=== PATIENT | female | born 1945 | race Caucasian/White ===

== ENCOUNTER → 2017-05-21 | Outpatient (CLI) | payer MEDICARE ==
[~2017-05-21] MED LIST: GASTROGRAFIN SOLUTION 30ML (Q9963) As Ordered ONE; ISOVUE-370 76% 100ML VIAL (Q9967) As Ordered ONE
--- NOTE | 2017-05-21 17:04 | REP ---
CT chest with contrast: History: Restaging lymphoma. Diarrhea and cramping. Comparison chest CT study 02/10/2015. CT contrast dose: 100 mL of Isovue [address] findings: There is no evidence of pleural or pericardial effusion. A hiatal hernia is again noted. No hilar or mediastinal lymphadenopathy is appreciated. Some coronary artery vascular calcification is seen. No periaortic disease is seen. There is a paraesophageal lymph node just posterior to the left atrium which measures 1.5 cm in cranial caudal span but only 0.6 x 0.7 cm in transverse dimension. No retrocrural adenopathy is seen. No axillary or supraclavicular jd disease is seen. A right-sided [id number]-[id number] catheter is noted in the superior vena cava. No bony destructive lesion is seen. There are cysts in the left liver as before. Lung window settings show no pulmonary nodule or mass lesion. No infiltrate or pleural effusion is seen. Impression: Hiatal hernia again noted. The single paraesophageal lymph node is seen borderline in size. No other evidence of adenopathy in the chest. Signed by Italo Grace MD 05/22/2017 07:52 A
--- NOTE | 2017-05-21 17:04 | REP ---
CT abdomen and pelvis without and with IV contrast and with bowel contrast: Comparison is 01/22/2015. After IV contrast. Biphasic imaging is performed initially during the arterial phase of enhancement followed by imaging during the delayed equilibrium phase of enhancement. There is no evidence of hepatosplenomegaly. This is unchanged. There is an hepatic cyst in the medial segment of the left lobe measuring up to 2.6 cm. There is an hepatic cyst in the right lobe of the liver measuring up to 2.4 cm. These are not significantly changed. The hepatic parenchyma is otherwise homogeneous and unremarkable. The gallbladder and pancreas are unremarkable. Spleen and liver otherwise homogeneous, normal size and unremarkable. The adrenals and kidneys are unremarkable and unchanged. There is confluent periaortic/retroperitoneal adenopathy, however, this has decreased in size from the comparison study. Pelvis: There is bilateral iliac and femoral adenopathy. This has also decreased in size. There are bilateral inguinal nodes. A few are borderline enlarged. The remainder are normal size. This is unchanged. The uterus and adnexa are unremarkable. There is no ascites. The pelvic bowel loops are unremarkable. Occasional normal size mesenteric nodes are noted. No mesenteric lymph node enlargement. The number of mesenteric nodes has decreased. There is a fixed hiatal hernia. This is unchanged. Impression: The periaortic retroperitoneal adenopathy has decreased in size. The bilateral iliac and femoral adenopathy has decreased in size. There are multiple inguinal nodes bilaterally, a few of which are borderline enlarged. This is unchanged. There are normal size mesenteric nodes. These have decreased in number from the prior study. Signed by Carlos Alberto Contreras MD 05/21/2017 04:56 P
== END ==
LOC: M RAD 14:25
PROVIDERS: ATTEND Internal Medicine Medical Oncology
DX: C82.08 Follicular lymphoma grade I, lymph nodes of multiple sites (principal)
CPT/HCPCS: 71260; 74178; Q9963; Q9967

== ENCOUNTER → 2017-08-28 | Outpatient (REF) | payer MEDICARE ==
[2017-08-28 18:42] LABS: PERCENT SATURATION 17.9 % (13.2-45.0)
== END ==
LOC: M LAB REF 16:34
PROVIDERS: ATTEND Internal Medicine Medical Oncology
DX: C85.90 Non-Hodgkin lymphoma, unspecified, unspecified site (principal)

== ENCOUNTER → 2017-11-14 | Outpatient (REF) | payer MEDICARE ==
[2017-11-14 13:24] LABS: INR 0.85; PROTHROMBIN TIME 11.7 SECONDS (12.4-14.5)
[2017-11-14 13:25] LABS: PARTIAL THROMBOPLASTIN TIME 27.3 SECONDS (26.8-37.9)
== END ==
LOC: M LAB REF 13:06
DX: C82.08 Follicular lymphoma grade I, lymph nodes of multiple sites (principal)
CPT/HCPCS: 85610

== ENCOUNTER → 2017-11-19 | Outpatient (REF) | payer MEDICARE | LOC: M LAB REF 13:04 | DX: C82.08 Follicular lymphoma grade I, lymph nodes of multiple sites (principal) | CPT/HCPCS: 88300 ==

== ENCOUNTER → 2017-11-20 | Outpatient (CLI) | payer MEDICARE | LOC: M PLARAD 13:29 | DX: C82.08 Follicular lymphoma grade I, lymph nodes of multiple sites (principal) | CPT/HCPCS: 78815 ==

== ENCOUNTER → 2017-11-27 | Outpatient (CLI) | payer MEDICARE ==
[~2017-11-27] MED LIST changes: +ACETAMINOPHEN 325 MG TAB As Ordered; -GASTROGRAFIN SOLUTION 30ML (Q9963) As Ordered ONE; -ISOVUE-370 76% 100ML VIAL (Q9967) As Ordered ONE; +LIDOCAINE 1% MDV 20ML VIAL As Ordered
== END ==
LOC: M RADPRO 08:28
DX: R93.7 Abnormal findings on diagnostic imaging of other parts of musculoskeletal system (principal); C85.10 Unspecified B-cell lymphoma, unspecified site; Z88.1 Allergy status to other antibiotic agents; Z79.899 Other long term (current) drug therapy
CPT/HCPCS: 62269

== ENCOUNTER 2017-12-04 15:09 | Outpatient (RCR) | payer MEDICARE | END 2017-12-05 | LOC: M ONCR 15:09 | DX: C82.09 Follicular lymphoma grade I, extranodal and solid organ sites (principal) | CPT/HCPCS: 77307 ==

== ENCOUNTER → 2017-12-04 | Outpatient (CLI) | payer MEDICARE | LOC: M RAD 14:08 | DX: C82.09 Follicular lymphoma grade I, extranodal and solid organ sites (principal) ==

== ENCOUNTER → 2017-12-04 | Outpatient (CLI) | payer MEDICARE | LOC: M ONCR 09:18 | DX: C82.00 Follicular lymphoma grade I, unspecified site (principal) ==

== ENCOUNTER 2017-12-06 11:07 | Outpatient (RCR) | payer MEDICARE | END 2018-01-02 | LOC: M ONCR 11:07 | DX: C82.09 Follicular lymphoma grade I, extranodal and solid organ sites (principal) | CPT/HCPCS: 77336 ==

== ENCOUNTER → 2018-01-04 | Outpatient (REF) | payer MEDICARE ==
[2018-01-04 13:35] LABS: APPEARANCE, URINE CLEAR (CLEAR); BACTERIA, URINE AUTO NEGATIVE (NEGATIVE); BILIRUBIN, URINE AUTO NEGATIVE (NEGATIVE); BLOOD, URINE BLOOD NEGATIVE (NEGATIVE); COLOR, URINE YELLOW (YELLOW); GLUCOSE, URINE (UA) AUTO NEGATIVE (NEGATIVE); KETONE, URINE AUTO NEGATIVE (NEGATIVE); LEUKOCYTE ESTERASE, URINE AUTO NEGATIVE (NEGATIVE); NITRITE, URINE AUTO NEGATIVE (NEGATIVE); PROTEIN, URINE AUTO NEGATIVE (NEGATIVE); RBC, URINE AUTO 4 /HPF (0-3); SPECIFIC GRAVITY URINE AUTO 1.015 (1.002-1.035); SQUAMOUS EPITHELIAL CELL UR AU 1 /HPF (0-6); UROBILINOGEN, URINE AUTO 0.2 mg/dL (0.0-2.0); WBC, URINE AUTO 1 /HPF (0-3)
== END ==
LOC: M LAB REF 13:10
DX: C85.90 Non-Hodgkin lymphoma, unspecified, unspecified site (principal)
CPT/HCPCS: 81001

== ENCOUNTER → 2018-01-09 | Outpatient (CLI) | payer MEDICARE | LOC: M ONCR 13:09 | DX: C82.09 Follicular lymphoma grade I, extranodal and solid organ sites (principal) | CPT/HCPCS: G0463 ==

== ENCOUNTER → 2018-02-19 | Outpatient (CLI) | payer MEDICARE | LOC: M PLARAD 13:32 | DX: C82.08 Follicular lymphoma grade I, lymph nodes of multiple sites (principal) | CPT/HCPCS: 78815 ==

== ENCOUNTER → 2018-08-13 | Outpatient (CLI) | payer MEDICARE | LOC: M PLARAD 09:16 | DX: C82.08 Follicular lymphoma grade I, lymph nodes of multiple sites (principal) | CPT/HCPCS: 78815 ==

== ENCOUNTER → 2019-07-16 | Outpatient (CLI) | payer MEDICARE ==
[~2019-07-16] MED LIST changes: -ACETAMINOPHEN 325 MG TAB As Ordered; +CARV25TA PO; +FLUTISP NARES; +GASTROGRAFIN SOLUTION 30ML (Q9963) As Ordered ONE; +HYDR25TAB PO; +HYOS0.1258 PO; +ISOVUE-370 76% 100ML VIAL (Q9967) As Ordered ONE; +LIDO2.5C15 TOP; -LIDOCAINE 1% MDV 20ML VIAL As Ordered; +NEXI40CA PO; +ONDA8TAB7 PO; +POTA20TA6; +POTA20TA6 PO; +SPIR-10 PO
--- NOTE | 2019-07-16 13:25 | REP ---
CT of the soft tissue neck without contrast Indication: Restaging follicular lymphoma. Comparison: PET/CT of 08/13/2018. Technique: Axial CT of the soft tissue neck was performed. No intravenous contrast was administered. Coronal and sagittal soft tissue reformatted images were provided. Findings: Within the limitation of a noncontrast enhanced CT examination, there are no enlarged cervical lymph nodes. There is streak artifact from dental amalgam with obscures the anterior face. However, the oropharynx is unremarkable. The right vallecular space is effaced (axial image 38). The upper, is unremarkable. The upper airway is patent. The collapsed upper esophagus is unremarkable. The lung apices are clear. There is a partially imaged right-sided anterior chest wall catheter. There is a hypoattenuating nodule within the left thyroid lobe which measures approximately 2.2 x 1.6 cm on coronal image 33. The submandibular glands and parotid glands are unremarkable. The orbital contents are intact. There are intracranial vascular calcifications. The imaged portion of the brain parenchyma is unremarkable. The visualized paranasal sinuses and mastoid air cells are clear. There is cervical spondylosis. Impression: Within the limitation of a noncontrast enhanced CT examination, there is no cervical lymphadenopathy. Effacement of the right vallecular space. Epiglottis is normal. Hypoattenuating left thyroid lobe nodule. Cervical spondylosis. Electronically Signed by Mariely Cano MD 07/16/2019 01:16 P
--- NOTE | 2019-07-16 13:34 | REP ---
CT of the chest without contrast Indication: Restaging follicular lymphoma. Comparison: PET/CT of 08/13/2018. Technique: Axial CT of the chest was performed. No intravenous contrast was administered. Coronal and sagittal soft tissue reformatted images, axial lung. Reformatted images and coronal MIP images were provided. Findings: Within the limitation of a noncontrast enhanced CT examination, there is no axillary mediastinal lymphadenopathy. The tip of the right-sided anterior chest wall port catheter terminates within the mid superior vena cava. There is aortic arch and coronary artery calcification. Heart size is normal. There is no pericardial the upper airway is patent. The lungs are clear. There is no pleural effusion. There is oral contrast within the mid esophagus and sliding hiatal hernia. Within the upper abdomen, there are no to hypoattenuating hepatic lesion is likely representing cysts. There is no adrenal nodule. No suspicious focal osseous lesion is identified. Impression: Within the limitation of a noncontrast enhanced chest CT examination, there is no evidence of disease. Electronically Signed by Mariely Cano MD 07/16/2019 01:26 P
--- NOTE | 2019-07-16 14:37 | REP ---
CT of the abdomen and pelvis without contrast Indication: Restaging follicular lymphoma. Comparison: PET/CT of 08/13/2018. CT of the abdomen pelvis of 05/21/2017. Technique: CT of the abdomen and pelvis was performed from the lung bases to the proximal femurs. No intravenous contrast was administered. Oral contrast media was administered. Coronal and sagittal soft tissue reformatted images were provided. Findings: Within the limitation of a noncontrast enhanced CT examination, there is ill-defined soft tissue within the aortocaval space just below the level of the left renal vein (axial image 53) as evidenced by circumferential calcification of the abdominal aorta at this level. However, this is not significantly changed from the 2018 PET/CT and significantly decreased when compared to noncontrast images of the 2017 examination as the aortocaval interval measures 5.4 x 1.7 cm, previously 6.8 x 3.6 cm on the 05/21/2017 examination. There are scattered small mesenteric lymph nodes, not significantly changed. There are newly enlarged lymph nodes. The liver is normal in size and contour. There are two hepatic cysts, measuring 2 and 3 cm, similar to prior. The gallbladder is underdistended. The spleen is normal in size. There is no adrenal nodule. The unenhanced pancreas and left kidney are within normal limits. There is a tiny nonobstructing 1 mm right renal lower pole calculus. There are atherosclerotic calcifications of the abdominal aorta and its branches. There is hiatal hernia. The stomach is moderately distended with contrast. Small and large bowel loops are normal in caliber. There are scattered colonic diverticula. There is no intraperitoneal free fluid or free air. The uterus is present. The ovaries are poorly visualized. The urinary bladder is underdistended. Superior endplate compression deformity of the L3 vertebral body with and less than 50% loss of height is new since the 2017 examination but sclerotic similar to the 08/13/2018 study, likely chronic. Grade 1 anterolisthesis of L4-L5 is unchanged. Impression: Within the limitation of a noncontrast enhanced CT examination, similar infrarenal soft tissue within the aortocaval space when compared to the head CT of 08/13/2018, significantly decreased from the CT abdomen and pelvis of 05/21/2017. No new evidence of disease. Chronic compression deformity of the L3 vertebral body with less than 50% loss of height, new since the 2017 examination. Electronically Signed by Mariely Cano MD 07/16/2019 02:28 P
== END ==
LOC: M RAD 11:31
PROVIDERS: ATTEND Nurse Practitioner Family
DX: C82.90 Follicular lymphoma, unspecified, unspecified site (principal)
CPT/HCPCS: 70490; 71250; 74176; Q9963

== ENCOUNTER → 2020-08-23 | Outpatient (CLI) | payer MEDICARE ==
[~2020-08-23] MED LIST changes: -ISOVUE-370 76% 100ML VIAL (Q9967) As Ordered ONE; +ISOVUE-370 76% 100ML VIAL As Ordered ONE; +ONDA8TAB10 PO; -ONDA8TAB7 PO
--- NOTE | 2020-08-23 13:45 | REP ---
INDICATION: HX OF NONHODGKINS LYMPHOMA COMPARISON: 07/16/2019, 05/21/2017 TECHNIQUE: Axial contrast enhanced images from the thoracic inlet to the upper abdomen using pulmonary embolus technique with multiplanar re-formations. 100 ml Isovue 370 intravenous contrast material administered without complication. Examination was followed by CT of the abdomen and pelvis. This CT examination was performed using the following dose reduction techniques: Automated exposure control, adjustment of mA and/or kv according to the patient's size, and use of iterative reconstruction technique. FINDINGS: The bilateral lung taveras are well aerated and clear. No consolidation, suspicious nodule or mass lesion is appreciated. No pleural effusion. No pneumothorax. Tracheobronchial tree is patent. No axillary, hilar, or mediastinal adenopathy. Thoracic aorta, pulmonary vasculature, and heart/pericardium are within normal limits. Moderate hiatal hernia is again identified along with stable single paraesophageal lymph node measuring 7 mm unchanged compared to 2017. Musculoskeletal structures are intact. [id number] identified with tip in the SVC. IMPRESSION: No mediastinal or pleuroparenchymal process appreciated. No evidence for adenopathy. <Electronically signed by Robbie Arreguin > 08/23/20 [id number]
--- NOTE | 2020-08-23 13:52 | REP ---
INDICATION: HX OF NONHODGKINS LYMPHOMA. COMPARISON: 05/21/2017 TECHNIQUE: Axial contrast-enhanced images from the lung bases to the pubic symphysis using 100 cc Isovue 370 intravenous contrast material. Coronal and sagittal reformations obtained along with delayed images of the abdomen. This CT examination was performed using the following dose reduction techniques: Automated exposure control, adjustment of mA and/or kv according to the patient's size, and the use of iterative reconstruction technique. FINDINGS: Liver, spleen, pancreas, gallbladder, bilateral adrenal glands and kidneys are normal/stable. Benign hepatic cysts measuring approximately 3.3 cm and 2.5 cm diameter are again noted. Moderate hiatal hernia is again noted at the gastroesophageal junction. No evidence for bowel obstruction or acute inflammatory process. Pelvis demonstrates normal bladder and age-appropriate uterus/adnexa. Sigmoid diverticula noted without acute diverticulitis. No ascites. No free air. Minimal periaortic soft tissue identified adjacent to the pararenal/infrarenal abdominal aorta which may represent chronic changes and the previously noted retroperitoneal adenopathy appears to have resolved. Atherosclerotic changes to the aorta and vasculature noted without aneurysm or dissection. Musculoskeletal structures demonstrate stable degenerative changes without acute osseous abnormality. IMPRESSION: 1. Small amount of residual periaortic soft tissue likely chronic. No significant residual adenopathy is appreciated based on comparison with prior examinations. 2. Stable benign hepatic cysts. 3. Sigmoid diverticula without acute diverticulitis. 4. Stable hiatal hernia. <Electronically signed by Robbie Arreguin > 08/23/20 [id number]
== END ==
LOC: M RAD 10:45
PROVIDERS: ATTEND Specialist
DX: Z85.72 Personal history of non-Hodgkin lymphomas (principal)
CPT/HCPCS: 71260; 74177; Q9963; Q9967

== ENCOUNTER → 2022-09-26 | Outpatient (CLI) | payer MEDICARE ==
[~2022-09-26] MED LIST changes: +AMOX500T PO; -GASTROGRAFIN SOLUTION 30ML (Q9963) As Ordered ONE; +GASTROGRAFIN SOLUTION 30ML As Ordered ONE; +HYDR-3490 PO; -HYDR25TAB PO; +LIDO1CRE42 TOP; -LIDO2.5C15 TOP; +ONDA-84 PO; -ONDA8TAB10 PO; +POTA-151; +POTA-151 PO; -POTA20TA6; -POTA20TA6 PO
== END ==
LOC: M RAD 11:38
PROVIDERS: ATTEND Internal Medicine Medical Oncology
DX: C82.90 Follicular lymphoma, unspecified, unspecified site (principal); K76.89 Other specified diseases of liver; K44.9 Diaphragmatic hernia without obstruction or gangrene; I70.0 Atherosclerosis of aorta; M51.36 Other intervertebral disc degeneration, lumbar region; I70.1 Atherosclerosis of renal artery; D48.3 Neoplasm of uncertain behavior of retroperitoneum; N28.89 Other specified disorders of kidney and ureter; E04.1 Nontoxic single thyroid nodule; M50.30 Other cervical disc degeneration, unspecified cervical region
CPT/HCPCS: 70491; 71260; 74177; Q9963; Q9967

== ENCOUNTER → 2022-10-09 | Outpatient (REF) | payer MEDICARE ==
[~2022-10-09] MED LIST changes: -GASTROGRAFIN SOLUTION 30ML As Ordered ONE; -ISOVUE-370 76% 100ML VIAL As Ordered ONE
[2022-10-09 15:48] LABS: APPEARANCE, URINE MANUAL CLEAR (CLEAR); BILIRUBIN, URINE MANUAL NEGATIVE (NEGATIVE); BLOOD URINE MANUAL NEGATIVE (NEGATIVE); COLOR, URINE MANUAL YELLOW (YELLOW); GLUCOSE, URINE (UA) MANUAL NEGATIVE (NEGATIVE); KETONE, URINE MANUAL NEGATIVE (NEGATIVE); LEUKOCYTE ESTERASE, URINE MAN POSITIVE (NEGATIVE); NITRITE, URINE MANUAL NEGATIVE (NEGATIVE); PH,URINE MAN 5.5 UNITS (5.0 - 7.0); PROTEIN, URINE MANUAL NEGATIVE (NEGATIVE); UROBILINOGEN, URINE MANUAL NORMAL (NORMAL)
[2022-10-09 19:17] LABS: BACTERIA, URINE LARGE AMOUNT; RBC, URINE 0-1 /hpf (0-3); SQUAMOUS EPITHELIAL CELL URINE LARGE AMOUNT /hpf (SMALL AMT); YEAST, URINE MOD AMOUNT
[2022-10-09 19:18] LABS: HYALINE CAST, URINE 0-1 /lpf (0-1); MUCUS, URINE SMALL AMOUNT (NEGATIVE)
== END ==
LOC: M SMT 12:57
PROVIDERS: ATTEND Urology
DX: N13.30 Unspecified hydronephrosis (principal)

== ENCOUNTER → 2022-10-31 | Outpatient (CLI) | payer MEDICARE | LOC: M PLARAD 08:46 | PROVIDERS: ATTEND Internal Medicine Medical Oncology | DX: C82.08 Follicular lymphoma grade I, lymph nodes of multiple sites (principal) | CPT/HCPCS: 78815; A9552 ==

== ENCOUNTER → 2022-12-03 | Outpatient (CLI) | payer MEDICARE ==
[~2022-12-03] MED LIST changes: +APAP325T4 PO; +COQ150CH PO; +DICY10CA13 PO; +ESOM40CA35 PO; +PROB250C PO; +RA G580C PO; +VISION ESSENTIAL PO; +VITA500C19 PO; +VITMTA PO; +[UNRECOGNIZED DRUG - OTHER] PO; +[UNRECOGNIZED DRUG - OTHER] PO; +[UNRECOGNIZED DRUG - REMARK] PO
== END ==
LOC: M LABSMTC 10:02
PROVIDERS: ATTEND Anesthesiology
DX: Z01.812 Encounter for preprocedural laboratory examination (principal); Z11.52 Encounter for screening for COVID-19

== ENCOUNTER 2022-12-07 07:33 | Day surgery (SDC) | payer MEDICARE ==
[~2022-12-07] VITALS: Ht 152.4 cm; Wt 59.1 kg
[~2022-12-07 07:33] MED LIST changes: +ceFAZolin SOD 2 GM in IV 1 EA IV ONE
[2022-12-07] MEDS ORDERED: LR 1,000 ML IV SCH (08:00)
[2022-12-07] MEDS ORDERED: ONDANSETRON 4MG 2ML VIAL As Ordered ONE (08:15)
[2022-12-07] MEDS ORDERED: propofoL 200 MG/20 ML VIAL As Ordered ONE ×2 (08:15→09:06)
[2022-12-07] MEDS ORDERED: ACETAMINOPHEN 1000MG 100ML IV BAG As Ordered ONE (08:15)
[2022-12-07] MEDS ORDERED: fentaNYL 100 MCG/2 ML INJECTION As Ordered ONE (08:16)
[2022-12-07] MEDS ORDERED: LIDOCAINE 2% 100MG/5ML SDV (FOR ANES.) As Ordered ONE (08:20)
[2022-12-07] MEDS ORDERED: ISOVUE-300 61% 100ML VIAL As Ordered ONE (08:26)
[2022-12-07] MEDS ORDERED: OXYB5TAB10 PO (09:38)
[2022-12-07] MEDS ORDERED: MACR100C43 PO (09:38)
[2022-12-07] MEDS ORDERED: PYRI1TAB5 PO (09:38)
[2022-12-07 09:47] VITALS: BP 137/80
== END 2022-12-07 10:09 | disposition home or self-care (01) ==
LOC: M SDC 07:33
PROVIDERS: ATTEND Urology
DX: N13.8 Other obstructive and reflux uropathy (principal); I10 Essential (primary) hypertension; K21.9 Gastro-esophageal reflux disease without esophagitis; Z85.72 Personal history of non-Hodgkin lymphomas; Z92.21 Personal history of antineoplastic chemotherapy; Z92.3 Personal history of irradiation; Z79.899 Other long term (current) drug therapy; Z88.5 Allergy status to narcotic agent; Z88.1 Allergy status to other antibiotic agents; Z88.8 Allergy status to other drugs, medicaments and biological substances
CPT/HCPCS: 52204; 52332; 74420; 88305; C1769; C2617; J0690; J1100; J2405; J3010; Q9967

== ENCOUNTER → 2022-12-25 | Outpatient (CLI) | payer MEDICARE ==
[~2022-12-25] MED LIST changes: +MACR100C43 PO; +OXYB5TAB10 PO; +PYRI1TAB5 PO; -ceFAZolin SOD 2 GM in IV 1 EA IV ONE
== END ==
LOC: M LABSMTC 07:41
PROVIDERS: ATTEND Internal Medicine Medical Oncology
DX: Z11.52 Encounter for screening for COVID-19 (principal)

== ENCOUNTER → 2023-01-22 | Outpatient (CLI) | payer MEDICARE | LOC: M LABSMTC 09:05 | PROVIDERS: ATTEND Internal Medicine Medical Oncology | DX: Z01.812 Encounter for preprocedural laboratory examination (principal); Z20.822 Contact with and (suspected) exposure to COVID-19 ==

== ENCOUNTER → 2023-02-19 | Outpatient (CLI) | payer MEDICARE ==
[~2023-02-19] MED LIST changes: +FLUT50SP17 NARES; -FLUTISP NARES; +GASTROGRAFIN SOLUTION 30ML As Ordered ONE; +ISOVUE-370 76% 100ML VIAL As Ordered ONE
== END ==
LOC: M RAD 14:05
PROVIDERS: ATTEND Internal Medicine Medical Oncology
DX: C82.90 Follicular lymphoma, unspecified, unspecified site (principal); K76.89 Other specified diseases of liver; D73.4 Cyst of spleen; Z96.0 Presence of urogenital implants; K57.30 Diverticulosis of large intestine without perforation or abscess without bleeding
CPT/HCPCS: 71260; 74177; Q9963; Q9967

== ENCOUNTER → 2023-03-29 | Outpatient (CLI) | payer MEDICARE ==
[~2023-03-29] MED LIST changes: +AMLO1TAB24; -GASTROGRAFIN SOLUTION 30ML As Ordered ONE; -ISOVUE-370 76% 100ML VIAL As Ordered ONE; +VALS1TAB66
== END ==
LOC: M ONCR 13:28
PROVIDERS: ATTEND General Practice
DX: C82.00 Follicular lymphoma grade I, unspecified site (principal); R59.0 Localized enlarged lymph nodes; R53.83 Other fatigue; Z96.0 Presence of urogenital implants; Z92.3 Personal history of irradiation; Z92.21 Personal history of antineoplastic chemotherapy; Z71.2 Person consulting for explanation of examination or test findings; K44.9 Diaphragmatic hernia without obstruction or gangrene; K21.9 Gastro-esophageal reflux disease without esophagitis; I10 Essential (primary) hypertension; Z80.52 Family history of malignant neoplasm of bladder; Z88.1 Allergy status to other antibiotic agents; Z88.5 Allergy status to narcotic agent; Z88.8 Allergy status to other drugs, medicaments and biological substances; Z79.899 Other long term (current) drug therapy

== ENCOUNTER → 2023-05-04 | Outpatient (RCR) | payer MEDICARE | LOC: M ONCR 04-06 10:28 | PROVIDERS: ATTEND General Practice | DX: C82.03 Follicular lymphoma grade I, intra-abdominal lymph nodes (principal); C82.09 Follicular lymphoma grade I, extranodal and solid organ sites ==

== ENCOUNTER → 2023-07-27 | Outpatient (CLI) | payer MEDICARE ==
[~2023-07-27] MED LIST changes: +DICY-61 PO; -DICY10CA13 PO; +GASTROGRAFIN SOLUTION 30ML As Ordered ONE; +ISOVUE-370 76% 100ML VIAL As Ordered ONE; -LIDO1CRE42 TOP; +LIDO30CR18 TOP
== END ==
LOC: M RAD 11:06
PROVIDERS: ATTEND General Practice
DX: C82.03 Follicular lymphoma grade I, intra-abdominal lymph nodes (principal); C82.09 Follicular lymphoma grade I, extranodal and solid organ sites
CPT/HCPCS: 71260; 74177; Q9963; Q9967

== ENCOUNTER → 2024-05-19 | Outpatient (CLI) | payer MEDICARE ==
[~2024-05-19] MED LIST changes: -FLUT50SP17 NARES; +FLUTISP NARES; -GASTROGRAFIN SOLUTION 30ML As Ordered ONE; -ISOVUE-370 76% 100ML VIAL As Ordered ONE; -OXYB5TAB10 PO; +OXYB5TAB14 PO
== END ==
LOC: M RAD 16:00
PROVIDERS: ATTEND General Practice
DX: C82.03 Follicular lymphoma grade I, intra-abdominal lymph nodes (principal); C82.09 Follicular lymphoma grade I, extranodal and solid organ sites; K57.30 Diverticulosis of large intestine without perforation or abscess without bleeding; K76.89 Other specified diseases of liver; M47.816 Spondylosis without myelopathy or radiculopathy, lumbar region; E04.1 Nontoxic single thyroid nodule; Z95.1 Presence of aortocoronary bypass graft; R91.8 Other nonspecific abnormal finding of lung field; J90 Pleural effusion, not elsewhere classified

== ENCOUNTER → 2024-05-23 | Outpatient (CLI) | payer MEDICARE ==
[~2024-05-23] MED LIST changes: +AMIO200T49 PO; +ECOT81TA5 PO; +FURO20TA2 PO; +METO50TA7 PO; +PANT40TA29 PO; +ROSU10TA61 PO; +VALS40TA9 PO
== END ==
LOC: M ONCR 09:30
PROVIDERS: ATTEND General Practice
DX: C82.03 Follicular lymphoma grade I, intra-abdominal lymph nodes (principal); C82.09 Follicular lymphoma grade I, extranodal and solid organ sites; Z92.21 Personal history of antineoplastic chemotherapy; Z92.3 Personal history of irradiation; Z88.1 Allergy status to other antibiotic agents; Z88.5 Allergy status to narcotic agent; Z88.8 Allergy status to other drugs, medicaments and biological substances; Z79.899 Other long term (current) drug therapy

== ENCOUNTER → 2024-11-17 | Outpatient (CLI) | payer MEDICARE ==
[~2024-11-17] MED LIST changes: +GARL580C PO; -HYOS0.1258 PO; +HYOS0.1297 PO; +ISOVUE-370 76% 100ML VIAL As Ordered ONE; -RA G580C PO; -VITA500C19 PO; +VITA500C22 PO
== END ==
LOC: M RAD 11:02
PROVIDERS: ATTEND General Practice
DX: C82.03 Follicular lymphoma grade I, intra-abdominal lymph nodes (principal); I25.10 Atherosclerotic heart disease of native coronary artery without angina pectoris; Z95.828 Presence of other vascular implants and grafts; I70.0 Atherosclerosis of aorta; J47.9 Bronchiectasis, uncomplicated; K44.9 Diaphragmatic hernia without obstruction or gangrene; K76.89 Other specified diseases of liver; K82.8 Other specified diseases of gallbladder; N26.1 Atrophy of kidney (terminal); D25.9 Leiomyoma of uterus, unspecified; K57.30 Diverticulosis of large intestine without perforation or abscess without bleeding; I77.810 Thoracic aortic ectasia; M48.56XA Collapsed vertebra, not elsewhere classified, lumbar region, initial encounter for fracture

== ENCOUNTER → 2024-11-26 | Outpatient (CLI) | payer MEDICARE ==
[~2024-11-26] MED LIST changes: -ISOVUE-370 76% 100ML VIAL As Ordered ONE
== END ==
LOC: M ONCR 14:16
PROVIDERS: ATTEND General Practice
DX: C82.03 Follicular lymphoma grade I, intra-abdominal lymph nodes (principal); C82.09 Follicular lymphoma grade I, extranodal and solid organ sites; Z92.3 Personal history of irradiation; Z92.21 Personal history of antineoplastic chemotherapy; Z88.1 Allergy status to other antibiotic agents; Z88.5 Allergy status to narcotic agent; Z88.8 Allergy status to other drugs, medicaments and biological substances; Z79.82 Long term (current) use of aspirin; Z79.899 Other long term (current) drug therapy

== ENCOUNTER → 2025-05-11 | Outpatient (CLI) | payer MEDICARE ==
[~2025-05-11] MED LIST changes: -AMIO200T49 PO; +AMIO200T54 PO
== END ==
LOC: M RAD 12:29
PROVIDERS: ATTEND General Practice
DX: C82.30 Follicular lymphoma grade IIIa, unspecified site (principal); I25.10 Atherosclerotic heart disease of native coronary artery without angina pectoris; I25.84 Coronary atherosclerosis due to calcified coronary lesion; K44.9 Diaphragmatic hernia without obstruction or gangrene; K59.00 Constipation, unspecified; N20.0 Calculus of kidney; D25.9 Leiomyoma of uterus, unspecified; K76.89 Other specified diseases of liver; K68.9 Other disorders of retroperitoneum

== ENCOUNTER → 2025-05-26 | Outpatient (CLI) | payer MEDICARE | LOC: M ONCR 14:09 | PROVIDERS: ATTEND General Practice | DX: C82.03 Follicular lymphoma grade I, intra-abdominal lymph nodes (principal); C82.09 Follicular lymphoma grade I, extranodal and solid organ sites; Z92.21 Personal history of antineoplastic chemotherapy; Z88.1 Allergy status to other antibiotic agents; Z88.5 Allergy status to narcotic agent; Z88.8 Allergy status to other drugs, medicaments and biological substances; Z79.82 Long term (current) use of aspirin; Z79.899 Other long term (current) drug therapy ==